=== PATIENT | male | born 1985 | race Two or more races ===

== ENCOUNTER 2020-01-02 13:03 | Emergency (ER) | payer OTHER ==
[~2020-01-02] VITALS: Ht 177.8 cm; Wt 90.7 kg
--- NOTE | 2020-01-02 13:30 | NUR ---
patient came in to the er c/o "Left Foot Pain- was dancing last night slipped and fell". On room air, breathing evenly and unlabored. connected to the monitor and pulse ox. kept comfortable, will continue to monitor accordingly.
[2020-01-02 14:35] VITALS: BP 145/81
--- NOTE | 2020-01-02 14:35 | NUR ---
Patient discharged to home in stable condition. Written and verbal after care instructions given. Patient verbalizes understanding of instruction.
== END 2020-01-02 14:35 | disposition home or self-care (01) ==
LOC: EDSEX 13:03 → ER 13:09
DX: S93.492A Sprain of other ligament of left ankle, initial encounter (principal); I10 Essential (primary) hypertension; W01.0XXA Fall on same level from slipping, tripping and stumbling without subsequent striking against object, initial encounter; Y93.41 Activity, dancing; Y92.89 Other specified places as the place of occurrence of the external cause; Y99.8 Other external cause status
CPT/HCPCS: 73630-TC

== ENCOUNTER 2021-08-19 19:31 | Emergency (ER) | payer OTHER ==
[~2021-08-19] VITALS: Ht 180.3 cm; Wt 90.7 kg
[2021-08-19 19:31] VITALS: BP 185/110
[2021-08-19] MEDS ORDERED: IBUP-1955 PO (21:28)
[2021-08-19] MEDS ORDERED: HYDR-4303 PO (21:28)
--- NOTE | 2021-08-19 21:36 | NUR ---
INCENTIVE SPIROMETER GIVEN WELL PT TEACHING. VERBALIZATION OF UNDERSTANDING BY THE PT.
--- NOTE | 2021-08-19 21:49 | NUR ---
Patient discharged to home in stable condition. Written and verbal after care instructions given. Patient verbalizes understanding of instruction. Pt ambulatory with a steady gait
== END 2021-08-19 21:50 | disposition home or self-care (01) ==
LOC: ER 19:34
DX: S20.212A Contusion of left front wall of thorax, initial encounter (principal); I10 Essential (primary) hypertension; F17.210 Nicotine dependence, cigarettes, uncomplicated; Z79.1 Long term (current) use of non-steroidal anti-inflammatories (NSAID); Z79.891 Long term (current) use of opiate analgesic; V86.96XA Unspecified occupant of dirt bike or motor/cross bike injured in nontraffic accident, initial encounter; Y93.89 Activity, other specified; Y92.89 Other specified places as the place of occurrence of the external cause; Y99.8 Other external cause status
CPT/HCPCS: 71046

== ENCOUNTER 2023-03-19 00:20 | Emergency (ER) | payer OTHER ==
[~2023-03-19] VITALS: Ht 180.3 cm; Wt 90.7 kg
[~2023-03-19 00:20] MED LIST: HYDR-4303 PO; IBUP-1955 PO
[2023-03-19 01:16] LABS: BASOPHILS # (AUTO) 0.1 K/uL (0.0-0.2); BASOPHILS % (AUTO) 1.4 % (0.0-2.0); EOSINOPHILS % (AUTO) 0.5 % (0.0-6.0); HEMATOCRIT 51 % (39-51); HEMOGLOBIN 17.3 g/dL (13.5-17.5); LYMPHOCYTES # (AUTO) 2.2 K/uL (0.8-4.8); LYMPHOCYTES % (AUTO) 26.1 % (20.0-44.0); MEAN CORPUSCULAR HEMOGLOBIN 34 PG (26.0-33.0); MEAN CORPUSCULAR HGB CONC 34 g/dl (31.0-36.0); MEAN CORPUSCULAR VOLUME 99 fL (80-96); MONOCYTES # (AUTO) 0.5 K/uL (0.1-1.30); MONOCYTES % (AUTO) 5.5 % (2.0-12.0); NEUTROPHILS # (AUTO) 5.6 K/uL (1.8-8.9); NEUTROPHILS % (AUTO) 66.5 % (43.0-81.0); PLATELET COUNT (AUTO) 217 K/uL (150-450); RED BLOOD CELL COUNT(AUTO) 5.11 MIL/uL (4.5-6.0); RED CELL DISTRIBUTION WIDTH 13.1 % (11.5-15.0); WHITE BLOOD COUNT (AUTO) 8.5 K/uL (4.3-11.0)
[2023-03-19 01:21] LABS: CALCIUM, SERUM 8.3 mg/dL (8.5-10.1); CREATININE 0.9 mg/dL (0.6-1.3)
[2023-03-19 01:23] VITALS: BP 145/87; TEMP 98.5; O2SAT 99
[2023-03-19 01:29] LABS: POTASSIUM 2.8 mmol/L (3.5-5.1)
== END 2023-03-19 01:23 | disposition left against medical advice (07) ==
LOC: ER 00:21
DX: R20.2 Paresthesia of skin (principal); I10 Essential (primary) hypertension; F17.200 Nicotine dependence, unspecified, uncomplicated; Z79.899 Other long term (current) drug therapy
CPT/HCPCS: 36415; 80048-TC; 84484-TC; 85025-TC

== ENCOUNTER 2024-09-15 13:38 | Emergency (ER) | payer OTHER ==
[~2024-09-15] VITALS: Ht 180.3 cm; Wt 90.7 kg
[2024-09-15 13:45] VITALS: BP 164/95; TEMP 98.3
[2024-09-15] MEDS ORDERED: IBUPROFEN 600 MG TABLET ONE (13:56)
[2024-09-15] MEDS: IBUPROFEN 600 MG TABLET PO ONE (13:59)
[2024-09-15 15:35] VITALS: O2SAT 99
== END 2024-09-15 15:35 | disposition home or self-care (01) ==
LOC: ER 14:05
DX: M79.644 Pain in right finger(s) (principal); F17.200 Nicotine dependence, unspecified, uncomplicated; I10 Essential (primary) hypertension
CPT/HCPCS: 73130-TC

== ENCOUNTER 2025-04-25 15:27 | Emergency (ER) | payer OTHER ==
[~2025-04-25] VITALS: Ht 180.3 cm; Wt 90.7 kg
[2025-04-25] MEDS: KETOROLAC TROMETHAMINE 15 MG/ML VIAL IM ONE (15:58)
[2025-04-25] MEDS ORDERED: KETOROLAC TROMETHAMINE 15 MG/ML VIAL ONE (16:18)
[2025-04-25] MEDS ORDERED: ACETAMINOPHEN ES 500 MG TABLET ONE (16:18)
[2025-04-25] MEDS: ACETAMINOPHEN ES 500 MG TABLET PO ONE (16:24)
[2025-04-25 17:01] VITALS: BP 178/95; TEMP 98.5; O2SAT 99
== END 2025-04-25 17:02 | disposition home or self-care (01) ==
LOC: ER 15:31
DX: S80.01XA Contusion of right knee, initial encounter (principal); S80.02XA Contusion of left knee, initial encounter; S90.01XA Contusion of right ankle, initial encounter; I10 Essential (primary) hypertension; F17.200 Nicotine dependence, unspecified, uncomplicated; V18.4XXA Pedal cycle driver injured in noncollision transport accident in traffic accident, initial encounter; Y93.55 Activity, bike riding; Y92.89 Other specified places as the place of occurrence of the external cause; Y99.8 Other external cause status
CPT/HCPCS: 99284; 96372; 73610; 73564 ×2; J1885